=== PATIENT | male | born 1935 | race Caucasian/White ===

== ENCOUNTER 2019-01-15 18:37 | Inpatient (IN) | payer MEDICARE ==
[~2019-01-15] VITALS: Ht 167.6 cm; Wt 62.6 kg
[2019-01-15 19:33] LABS: BASOPHILS % 0.4 % (0.0-1.0); EOSINOPHILS # (AUTO) 0.2 (0.0-0.4); EOSINOPHILS % 2.6 % (0.0-6.0); HEMATOCRIT 35.3 % (38.2-49.6); HEMOGLOBIN 11.4 g/dL (14.0-18.0); LYMPHOCYTES # (AUTO) 1.9 (1.0-3.2); LYMPHOCYTES % 25.4 % (18.0-39.1); MEAN CORPUSCULAR HEMOGLOBIN 32.9 pg (28-32); MEAN CORPUSCULAR HGB CONC 32.3 g/dL (31-35); MONOCYTES # (AUTO) 1.2 (0.2-0.8); MONOCYTES % 16.6 % (4.4-11.3); NEUTROPHILS % 54.7 % (38.7-80.0); PLATELET COUNT 166 x10e3/uL (140-360); RED BLOOD COUNT 3.46 x10e6/uL (4.3-5.7); RED CELL DISTRIBUTION WIDTH 14.2 % (11.7-14.4)
[2019-01-15 19:39] LABS: INR 1.08; PROTHROMBIN TIME 14.5 seconds (11.9-14.5)
[2019-01-15 19:40] LABS: PARTIAL THROMBOPLASTIN TIME 32.6 seconds (23.8-35.5)
[2019-01-15 19:49] LABS: ALANINE AMINOTRANSFERASE 11 IU/L (0-55); ALBUMIN 3.2 g/dL (3.5-5.0); ALBUMIN/GLOBULIN RATIO 1.3 (0.8-2.0); ALKALINE PHOSPHATASE 87 IU/L (40-150); ANION GAP 9.9 mmol/L (8-16); BLOOD UREA NITROGEN 20 mg/dL (7-26); BUN/CREATININE RATIO 27 (6-25); CALCIUM 8.8 mg/dL (8.4-10.2); CARBON DIOXIDE 28 mmol/L (22-29); CHLORIDE 107 mmol/L (98-107); CREATINE KINASE 53 IU/L (30-200); CREATININE, SERUM 0.73 mg/dL (0.72-1.25); EST GLOMERULAR FILTRATION RATE > 60 ML/MIN (60-); GLUCOSE 94 mg/dL (74-118); POTASSIUM 3.9 mmol/L (3.5-5.1); SODIUM 141 mmol/L (136-145)
--- NOTE | 2019-01-15 20:04 | Diagnostic Imaging Report ---
EXAMINATION: CHEST SINGLE (PORTABLE) COMPARISON: None INDICATION: UTI ^ERMD ORDER ^[id number] ^0 ^Y DISCUSSION: Frontal view of the chest obtained at 1943 hours. HEART AND MEDIASTINUM: The heart is normal in size. The aorta is mildly tortuous. LINES: None. LUNGS: The lungs are well inflated and clear. No pneumonia or pulmonary edema. PLEURA: No pleural effusion or pneumothorax. BONES AND SOFT TISSUES: No focal osseous lesion. The soft tissues are normal. IMPRESSION: No acute cardiopulmonary disease. Signed by: Dr. Henrietta Vo MD on 01/15/2019 8:01 PM
--- NOTE | 2019-01-15 20:11 | Diagnostic Imaging Report ---
Exam: Head CT without contrast History: Confusion, altered mental status Comparison studies: Prior brain MRI of 06/21/2011 is unavailable on the PACS for comparison. Technique: Axial images were obtained from the skull base to the vertex. Coronal and sagittal images reconstructed from the axial data. Dose modulation, iterative reconstruction, and/or weight based adjustment of the mA/kV was utilized to reduce the radiation dose to as low as reasonably achievable. Radiation dose: Total DLP: 921 mGy*cm. Estimated effective dose: DLP x 0.015 Intravenous contrast: None Findings: Scalp: No abnormalities. Bones: No fractures, blastic or lytic lesions. Brain sulci: Moderately prominent. Ventricles: Moderate compensatory dilatation with greater dilatation along the right temporal horn. No hydrocephalus Extra-axial spaces: No masses, no fluid collection. Parenchyma: No mass, hemorrhage or acute or chronic cortical insults. Mildly confluent age-related changes in the periventricular white matter with a few scattered additional ill-defined hypodensities in the supratentorial white matter which are nonspecific but are most compatible with chronic microvascular ischemic changes. Age-indeterminate lacunar infarct in the left subinsular region extending along the lateral margin of the left putamen. There is moderate generalized volume loss disproportionate volume loss along the right anteromedial temporal lobe and hippocampus. Sellar/suprasellar region: No abnormalities. Craniocervical junction: Patent foramen magnum. No Chiari one malformation. Incidental findings: Atherosclerotic calcifications in the carotid siphons and in the right vertebral artery. IMPRESSION: 1. Age-indeterminate left subinsular/putaminal lacunar infarct. 2. No mass, acute hemorrhage or cortical infarct. 3. Mild chronic microvascular ischemic changes. 4. Moderate generalized parenchymal volume loss disproportionate volume loss along the right anteromedial temporal lobe. Signed by: Dr. Pietro Lennon M.D. on 01/15/2019 8:07 PM
[2019-01-15 20:49] LABS: BILIRUBIN,URINE NEGATIVE (NEGATIVE); CLARITY,URINE SL CLOUDY (CLEAR); COLOR,URINE YELLOW (YELLOW); KETONES,URINE NEGATIVE (NEGATIVE); LEUKOCYTE ESTERASE ,URINE NEGATIVE (NEGATIVE); NITRITE,URINE NEGATIVE (NEGATIVE); PROTEIN,URINE DIPSTICK NEGATIVE (NEGATIVE); URINE UROBILINOGEN 0.2 mg/dL (0.2 - 1)
[2019-01-15 21:01] LABS: AMORPHOUS SEDIMENT,URINE FEW (FEW); BACTERIA,URINE RARE /HPF
[2019-01-16] VITALS (7 sets, daily range): BP systolic 114–162; BP diastolic 64–70
[2019-01-16] MEDS ORDERED: ONDANSETRON HCL INJ 2MG/ML 2ML 2 MG/ML VIAL IV PRN
[2019-01-16] MEDS ORDERED: HALOPERIDOL LACTATE 5 MG/ML VIAL IV PRN
--- OUTSIDE RECORDS SUMMARY | 2019-01-16 00:07 | XMS REPORT ---
Author [facility] Address Unknown Phone Unavailable Care Team Providers Care Node Js Developer Name Role Phone ELVIRA JIMENEZ Unavailable Unavailable Problems This patient has no known problems. Allergies, Adverse Reactions, Alerts This patient has no known allergies or adverse reactions. Medications This patient has no known medications. Results Test Description Test Time Test Comments Text Results Atomic Results Result Comments CHEST SINGLE (PORTABLE) 2019-01-15 20:00:00 [place] [address] Patient Name: MARIAH NELSON MR #: [id number] : 1935 Age/Sex: 83/M Req #: [id number] Adm Physician: Ordered by: NORBERT LESTER NP Report #: [id number] Location: ER Room/Bed: Procedure: [id number] DX/CHEST SINGLE (PORTABLE) Exam Date: 01/15/19 Exam Time: 1929 REPORT STATUS: Signed EXAMINATION: CHEST SINGLE (PORTABLE) COMPARIS ON: None INDICATION: UTI ERMD ORDER [id number] 1929 Y DISCUSSION: Frontal view of the chest obtained at 1943 hours. HEART AND MEDIASTINUM: The heart is normal in size. The aorta is mildly tortuous. LINES: None. LUNGS: The lungs are well inflated and clear. No pneumonia or pulmonary edema. PLEURA: No pleural effusion or pneumothorax. BONES AND SOFT TISSUES: No focal osseous lesion. The soft tissues are normal. IMPRESSION: No acute cardiopulmonary disease. Signed by: Dr. Ashvin Vo MD on 01/15/2019 8:01 PM Dictated By: ASHVIN VO MD 00 Transcribed By: CHRISTOPHER on 01/15/192000 COPY TO: NORBERT LESTER NP CT BRAIN WO 2019-01-15 19:55:00 [place] [address] Patient Name: MARIAH NELSON MR #: [id number] : 1935 Age/Sex: 83/M Req #: [id number] Adm Physician: Ordered by: NORBERT LESTER NP Report #: [id number] Location: ER Room/Bed: Procedure: [id number] CT/CT BRAIN WO Exam Date: 01/15/19 Exam Time: 1929 REPORT STATUS: Signed Exam: Head CT without contrast History: Confusion, altered mental status Comparison studies: Prior brain MRI of 06/21/2011 is unavailable on the PACS for comparison. Technique: Axial images were obtained from the skull base to the vertex. Coronal and sagittal images reconstructed from the axial data. Dose modulation, iterative reconstruction, and/or weight based adjustment of the mA/kV was utilized to reduce the radiation dose to as low as reasonably achievable. Radiation dose: Total DLP: 921 mGy*cm. Estimated effective dose: DLP x 0.015 Intravenous contrast: None Findings: Scalp: No abnormalities. Bones: No fractures, blastic or lytic lesions. Brain sulci: Moderately prominent. Ventricles: Moderate compensatory dilatation with greater dilatation along the right temporal horn. No hydrocephalus Extra-axial spaces: No masses, no fluid collection. Parenchyma: No mass, hemorrhage or acute or chronic cortical insults. Mildly confluent age-related changes in the periventricular white matter with a few scattered additional ill-defined hypodensities in the supratentorial white matter which are nonspecific but are most compatible with chronic microvascular ischemic changes. Age-indeterminate lacunar infarct in the left subinsular region extending along the lateral margin of the left putamen. There is moderate generalized volume loss disproportionate volume loss along the right anteromedial temporal lobe and hippocampus. Sellar/suprasellar region: No abnormalities. Craniocervical junction: Patent foramen magnum. No Chiari one malformation. Incidental findings: Atherosclerotic calcifications in the carotid siphons and in the right vertebral artery. IMPRESSION: 1. Age-indeterminate left subinsular/putaminal lacunar infarct. 2. No mass, acute hemorrhage or cortical infarct. 3. Mild chronic microvascular ischemic changes. 4. Moderate generalized parenchymal volume loss disproportionate volume loss along the right anteromedial temporal lobe. Signed by: Dr. Khadra Lennon M.D. on 01/15/2019 8:07 PM Dictated By: KHADRA LENNON MD 06 Transcribed By: CHRISTOPHER on 01/15/192006 COPY TO: NORBERT LESTER NP
[2019-01-16] MEDS: SODIUM CHLORIDE 0.9% 1000ML 1,000 ML IV SCH ×2 (05:46→13:18)
[2019-01-16] MEDS ORDERED: ACETAMINOPHEN 325 MG TAB PO PRN (11:15)
[2019-01-16] MEDS: ASPIRIN 81 MG ENTERIC COATED PO SCH (11:31)
--- NOTE | 2019-01-16 11:43 | Diagnostic Imaging Report ---
Exam: Right foot and ankle 3 views each History: Pain Comparison: None. Findings: No acute fracture. Remote appearing transverse fracture of the medial malleolus. Generalized soft tissue swelling. Vascular calcifications. Plantar calcaneal enthesophytes. Impression: No acute osseous abnormality Signed by: Dr. Danial Bain M.D. on 01/16/2019 11:39 AM
[2019-01-16] MEDS: ENOXAPARIN SOD INJ 40 MG/0.4 ML SYR SC SCH (16:59)
[2019-01-16] MEDS: FAMOTIDINE 20 MG TAB PO SCH (16:59)
[2019-01-16 18:04] LABS: THYROID STIMULATING HORMONE 2.446 uIU/mL (0.350-4.940)
--- NOTE | 2019-01-16 18:46 | History and Physical ---
CHIEF COMPLAINT: Change in mental status. HISTORY OF PRESENT ILLNESS: This is an 83-year-old male with past medical history of dementia, who was in his usual state of health until patient's daughter brought to my office. The patient was wandering in last one or two days. The patient also has change in mental status, confused, stopped taking all medicine except p.r.n. Lasix. No chest pain. No shortness of breath. No cough. Has low-grade fever. No abdominal pain, no nausea, no vomiting. No diarrhea or constipation. Mild leg swelling. Has right ankle and right calf pain. ALLERGIES: ALLERGY TO IODINE AND SHELLFISH DERIVATIVES. PAST MEDICAL HISTORY: Dementia. PAST SURGICAL HISTORY: None. SOCIAL HISTORY: The patient is a and lives with daughter. HABITS: Denies smoking. Denies alcohol use. Denies illicit drug use. MEDICATIONS: Occasionally Lasix p.r.n. for leg swelling. The patient has stopped taking Aricept and Namenda. REVIEW OF SYSTEMS: GENERAL: Denies fatigue or weakness. HEENT: No diplopia. No blurry vision. CARDIOPULMONARY: No chest pain. No shortness of breath. No cough. ALIMENTARY SYSTEM: No nausea. No vomiting. GENITOURINARY SYSTEM: No dysuria, hematuria. MUSCULOSKELETAL: Has some joint pains. CENTRAL NERVOUS SYSTEM: The patient has severe dementia. No focal weakness. PHYSICAL EXAMINATION: GENERAL: This is an 83-year-old male, who is alert but oriented x0. VITAL SIGNS: Temperature 95.6, pulse 50, respiratory rate 18, blood pressure 134/70. HEENT: Head is atraumatic and normocephalic. Pupils are bilaterally equal and reactive to light. Extraocular muscles are intact. NECK: Supple. No JVD. No carotid bruits. LUNGS: Clear to auscultation and percussion bilaterally. No added sounds. HEART: S1 and S2. Regular rate and rhythm. No S3, S4, or murmur. ABDOMEN: Soft, nontender. No guarding. No rigidity. EXTREMITIES: +1 pitting edema bilaterally. There is range of motion right ankle tenderness and there is right calf tenderness. Chest x-ray is normal. No acute changes. CT of the head shows no mass, volume loss. Mild chronic microvascular changes, age indeterminate lacunar infarct, moderate parenchymal loss. LABORATORY DATA: White count 7.35, hematocrit 35, platelet is 166. Sodium 134, potassium 3.9, BUN and creatinine normal. Bilirubin 1.9, albumin 3.2. Urine normal. ASSESSMENT: 1. Change in mental status. Rule out new stroke. Rule out worsening of dementia. 2. Mild anemia. 3. Debility. 4. Right calf pain, rule out deep vein thrombosis. PLAN: Admit the patient to IMCU. Neuro check q.4 hours. Neurology consult, Dr. Garcia. Venous Doppler of right and left leg to rule out DVT. IV fluids normal saline 75 mL/h. Aspirin 81 mg p.o. daily. Further treatment and plan as per Neurology. MD ANUJA Contreras/MODL /[id number]
[2019-01-17] VITALS (8 sets, daily range): BP systolic 120–184; BP diastolic 64–99
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
[2019-01-17] MEDS: SODIUM CHLORIDE 0.9% 1000ML 1,000 ML IV SCH (02:38)
[2019-01-17 06:00] LABS: ALANINE AMINOTRANSFERASE 13 IU/L (0-55); ALBUMIN 3.4 g/dL (3.5-5.0); ALBUMIN/GLOBULIN RATIO 1.4 (0.8-2.0); ALKALINE PHOSPHATASE 93 IU/L (40-150); ANION GAP 12.1 mmol/L (8-16); BLOOD UREA NITROGEN 16 mg/dL (7-26); BUN/CREATININE RATIO 23 (6-25); CALCIUM 8.9 mg/dL (8.4-10.2); CARBON DIOXIDE 26 mmol/L (22-29); CHLORIDE 104 mmol/L (98-107); EST GLOMERULAR FILTRATION RATE > 60 ML/MIN (60-); GLUCOSE 86 mg/dL (74-118); POTASSIUM 4.1 mmol/L (3.5-5.1); SODIUM 138 mmol/L (136-145)
[2019-01-17] MEDS: FAMOTIDINE 20 MG TAB PO SCH ×3 (07:30→17:30)
[2019-01-17] MEDS: ASPIRIN 81 MG ENTERIC COATED PO SCH (09:25)
[2019-01-17] MEDS ORDERED: ONDANSETRON HCL 4 MG ORAL DISINTEGRATING TAB PO PRN (09:45)
[2019-01-17] MEDS: ENOXAPARIN SOD INJ 40 MG/0.4 ML SYR SC SCH (17:30)
[2019-01-17] MEDS: SIMVASTATIN 20 MG TAB PO SCH (21:16)
[2019-01-18] VITALS (7 sets, daily range): BP systolic 129–172; BP diastolic 62–112
[2019-01-18] MEDS ORDERED: ONDANSETRON HCL 4 MG ORAL DISINTEGRATING TAB PO PRN (06:15)
[2019-01-18] MEDS: ASPIRIN 81 MG ENTERIC COATED PO SCH (07:30)
[2019-01-18] MEDS: FAMOTIDINE 20 MG TAB PO SCH ×2 (07:30→16:40)
[2019-01-18] MEDS: LOSARTAN POTASSIUM 100 MG TAB PO SCH (07:31)
[2019-01-18] MEDS ORDERED: QUETIAPINE FUMARATE 25 MG TAB PO PRN (16:15)
[2019-01-18] MEDS ORDERED: LORAZEPAM 0.5 MG TAB PO PRN (16:30)
[2019-01-18] MEDS: ENOXAPARIN SOD INJ 40 MG/0.4 ML SYR SC SCH (16:40)
[2019-01-18] MEDS: LORAZEPAM INJ 2 MG/ML VIAL IM PRN (17:32)
[2019-01-18] MEDS: SIMVASTATIN 20 MG TAB PO SCH (21:00)
[2019-01-18] MEDS ORDERED: TRAZODONE HCL 50 MG TAB PO SCH ×3 (21:00)
[2019-01-18] MEDS ORDERED: TRAZODONE HCL 50 MG TAB PO PRN (21:00)
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
[2019-01-19] VITALS (8 sets, daily range): BP systolic 104–159; BP diastolic 61–98
[2019-01-19 05:21] LABS: BASOPHILS % 0.6 % (0.0-1.0); EOSINOPHILS # (AUTO) 0.2 (0.0-0.4); EOSINOPHILS % 3.2 % (0.0-6.0); HEMATOCRIT 39.5 % (38.2-49.6); LYMPHOCYTES # (AUTO) 1.6 (1.0-3.2); LYMPHOCYTES % 24.9 % (18.0-39.1); MEAN CORPUSCULAR HEMOGLOBIN 33.2 pg (28-32); MEAN CORPUSCULAR HGB CONC 32.9 g/dL (31-35); MONOCYTES # (AUTO) 0.9 (0.2-0.8); MONOCYTES % 14.3 % (4.4-11.3); NEUTROPHILS # (AUTO) 3.7 (2.1-6.9); NEUTROPHILS % 56.5 % (38.7-80.0); PLATELET COUNT 173 x10e3/uL (140-360); RED BLOOD COUNT 3.91 x10e6/uL (4.3-5.7); RED CELL DISTRIBUTION WIDTH 14.1 % (11.7-14.4)
[2019-01-19 05:40] LABS: ANION GAP 14.8 mmol/L (8-16); BLOOD UREA NITROGEN 12 mg/dL (7-26); BUN/CREATININE RATIO 17 (6-25); CALCIUM 8.8 mg/dL (8.4-10.2); CARBON DIOXIDE 25 mmol/L (22-29); CHLORIDE 106 mmol/L (98-107); CREATININE, SERUM 0.71 mg/dL (0.72-1.25); EST GLOMERULAR FILTRATION RATE > 60 ML/MIN (60-); GLUCOSE 91 mg/dL (74-118); POTASSIUM 3.8 mmol/L (3.5-5.1); SODIUM 142 mmol/L (136-145)
[2019-01-19] MEDS: FAMOTIDINE 20 MG TAB PO SCH ×2 (07:30→17:14)
[2019-01-19] MEDS: ASPIRIN 81 MG ENTERIC COATED PO SCH (09:00)
[2019-01-19] MEDS: LOSARTAN POTASSIUM 100 MG TAB PO SCH ×2 (09:00→17:15)
[2019-01-19] MEDS: HALOPERIDOL LACTATE 5 MG/ML VIAL IM PRN ×2 (11:29→17:43)
--- NOTE | 2019-01-19 15:58 | Progress Note ---
DATE: 01/19/2019 Psychiatric Progress Note SUBJECTIVE: Upon evaluation today, the patient is found to be in the room, he is with a sitter. He is calm and cooperative. He is oriented to self, situation, and place. He, however, has been getting p.r.n. IM medications. He got Seroquel last night. He also got Ativan p.r.n. last night. He did not get trazodone due to he was sleeping. This morning in the afternoon, he got Haldol p.r.n. IM. He has been eating well and no serious side effects seen or reported. The patient denies any depression or hallucination. The sitter states that he slept yesterday. ASSESSMENT: 1. Unspecified psychosis. 2. Unspecified dementia with behavior disturbances. PLAN: 1. Continue with vancomycin p.r.n. p.o. 2. DC trazodone p.o. at bedtime. 3. DC patch. 4. Continue Haldol p.r.n. IM and Ativan p.r.n. IM. 5. Add Seroquel 25 mg p.o. at bedtime and 12.5 mg p.o. b.i.d. 6. Monitor for agitation. Dictated by Karlie Almonte PA-C Robert Abebe MD QTV/MODL /[id number]
[2019-01-19] MEDS: ENOXAPARIN SOD INJ 40 MG/0.4 ML SYR SC SCH (17:15)
[2019-01-19] MEDS: QUETIAPINE FUMARATE 25 MG TAB PO SCH ×2 (17:15→20:25)
[2019-01-19] MEDS: SIMVASTATIN 20 MG TAB PO SCH (20:25)
[2019-01-20] VITALS (7 sets, daily range): BP systolic 139–167; BP diastolic 65–97
[2019-01-20] MEDS: LORAZEPAM INJ 2 MG/ML VIAL IM PRN (00:16)
[2019-01-20] MEDS: QUETIAPINE FUMARATE 25 MG TAB PO SCH ×3 (09:00→21:19)
[2019-01-20] MEDS: FAMOTIDINE 20 MG TAB PO SCH ×2 (09:16→17:27)
[2019-01-20] MEDS: ASPIRIN 81 MG ENTERIC COATED PO SCH (09:16)
[2019-01-20] MEDS: LOSARTAN POTASSIUM 100 MG TAB PO SCH (09:17)
[2019-01-20] MEDS: ENOXAPARIN SOD INJ 40 MG/0.4 ML SYR SC SCH (17:27)
[2019-01-20] MEDS: SIMVASTATIN 20 MG TAB PO SCH (21:19)
[2019-01-21] VITALS (9 sets, daily range): BP systolic 117–156; BP diastolic 75–87
[2019-01-21] MEDS: HALOPERIDOL LACTATE 5 MG/ML VIAL IM PRN ×3 (02:28→22:38)
[2019-01-21 06:26] LABS: ANION GAP 10.6 mmol/L (8-16); BLOOD UREA NITROGEN 15 mg/dL (7-26); BUN/CREATININE RATIO 22 (6-25); CALCIUM 8.9 mg/dL (8.4-10.2); CARBON DIOXIDE 26 mmol/L (22-29); CHLORIDE 108 mmol/L (98-107); CREATININE, SERUM 0.67 mg/dL (0.72-1.25); EST GLOMERULAR FILTRATION RATE > 60 ML/MIN (60-); GLUCOSE 86 mg/dL (74-118); POTASSIUM 3.6 mmol/L (3.5-5.1); SODIUM 141 mmol/L (136-145)
[2019-01-21] MEDS: FAMOTIDINE 20 MG TAB PO SCH ×2 (11:50→17:51)
[2019-01-21] MEDS: QUETIAPINE FUMARATE 25 MG TAB PO SCH ×3 (11:50→20:51)
[2019-01-21] MEDS: ASPIRIN 81 MG ENTERIC COATED PO SCH (11:50)
[2019-01-21] MEDS: LOSARTAN POTASSIUM 100 MG TAB PO SCH (11:50)
[2019-01-21] MEDS: ENOXAPARIN SOD INJ 40 MG/0.4 ML SYR SC SCH (17:51)
[2019-01-21] MEDS: SIMVASTATIN 20 MG TAB PO SCH (20:52)
[2019-01-21] MEDS: ACETAMINOPHEN 325 MG TAB PO PRN (23:38)
[2019-01-22] VITALS (7 sets, daily range): BP systolic 103–140; BP diastolic 64–84
[2019-01-22] MEDS: QUETIAPINE FUMARATE 25 MG TAB PO SCH ×3 (09:32→20:44)
[2019-01-22] MEDS: ASPIRIN 81 MG ENTERIC COATED PO SCH (09:32)
[2019-01-22] MEDS: FAMOTIDINE 20 MG TAB PO SCH ×2 (09:32→17:27)
[2019-01-22] MEDS: LOSARTAN POTASSIUM 100 MG TAB PO SCH (09:32)
[2019-01-22] MEDS: ENOXAPARIN SOD INJ 40 MG/0.4 ML SYR SC SCH (17:27)
[2019-01-22] MEDS: ACETAMINOPHEN 325 MG TAB PO PRN (20:44)
[2019-01-22] MEDS: SIMVASTATIN 20 MG TAB PO SCH (20:44)
[2019-01-23] VITALS (9 sets, daily range): BP systolic 107–150; BP diastolic 64–88
[2019-01-23 05:35] LABS: BASOPHILS % 0.4 % (0.0-1.0); EOSINOPHILS # (AUTO) 0.4 (0.0-0.4); EOSINOPHILS % 4.2 % (0.0-6.0); HEMATOCRIT 38.7 % (38.2-49.6); HEMOGLOBIN 12.7 g/dL (14.0-18.0); LYMPHOCYTES # (AUTO) 2.8 (1.0-3.2); LYMPHOCYTES % 33.2 % (18.0-39.1); MEAN CORPUSCULAR HGB CONC 32.8 g/dL (31-35); MEAN CORPUSCULAR VOLUME 100.5 fL (81-99); MONOCYTES # (AUTO) 1.2 (0.2-0.8); MONOCYTES % 14.4 % (4.4-11.3); NEUTROPHILS # (AUTO) 3.9 (2.1-6.9); NEUTROPHILS % 47.6 % (38.7-80.0); PLATELET COUNT 186 x10e3/uL (140-360); RED BLOOD COUNT 3.85 x10e6/uL (4.3-5.7); RED CELL DISTRIBUTION WIDTH 14.1 % (11.7-14.4)
[2019-01-23 05:59] LABS: ALANINE AMINOTRANSFERASE 29 IU/L (0-55); ALBUMIN 3.2 g/dL (3.5-5.0); ALBUMIN/GLOBULIN RATIO 1.3 (0.8-2.0); ALKALINE PHOSPHATASE 85 IU/L (40-150); ANION GAP 8.9 mmol/L (8-16); BUN/CREATININE RATIO 31 (6-25); CARBON DIOXIDE 29 mmol/L (22-29); CHLORIDE 104 mmol/L (98-107); EST GLOMERULAR FILTRATION RATE > 60 ML/MIN (60-); GLUCOSE 94 mg/dL (74-118); POTASSIUM 3.9 mmol/L (3.5-5.1); SODIUM 138 mmol/L (136-145)
[2019-01-23 06:02] LABS: BLOOD UREA NITROGEN 25 mg/dL (7-26)
[2019-01-23] MEDS: HALOPERIDOL LACTATE 5 MG/ML VIAL IM PRN (08:10)
[2019-01-23] MEDS: FAMOTIDINE 20 MG TAB PO SCH ×2 (09:45→16:34)
[2019-01-23] MEDS: ASPIRIN 81 MG ENTERIC COATED PO SCH (09:52)
[2019-01-23] MEDS: LOSARTAN POTASSIUM 100 MG TAB PO SCH (09:53)
[2019-01-23] MEDS: QUETIAPINE FUMARATE 25 MG TAB PO SCH ×3 (09:53→19:56)
--- NOTE | 2019-01-23 15:18 | Progress Note ---
DATE: Psychiatric Progress Note SUBJECTIVE: The patient is evaluated and events noted. Upon evaluation today, the patient is found to be sitting comfortably on his chair. He is alert, awake, and oriented to situation. He is calm and cooperative. He denies feeling depressed. He denies any hallucinations and/or any suicidal ideation. He is taking his medications and denies any side effects from his medications. Collateral information is obtained from his daughter, who claims the patient is doing better than before. She agrees with the patient's transfer to inpatient psychiatry at this time. DIAGNOSIS: AXIS I: Unspecified psychosis/unspecified dementia with behavioral disturbances. PLAN OF CARE: 1. Continue p.r.n. Haldol. 2. Continue p.r.n. Ativan. 3. Continue low dose of Seroquel. 4. Continue p.r.n. Seroquel. 5. Monitor for agitation. MD CANDY EstebanQ/MODL /[id number]
[2019-01-23] MEDS: SIMVASTATIN 20 MG TAB PO SCH (19:56)
[2019-01-24 00:02] VITALS: BP 171/80
[2019-01-24 07:51] VITALS: BP 152/76
[2019-01-24 08:55] VITALS: BP 152/76
[2019-01-24] MEDS: ASPIRIN 81 MG ENTERIC COATED PO SCH (08:55)
[2019-01-24] MEDS: LOSARTAN POTASSIUM 100 MG TAB PO SCH (08:55)
[2019-01-24] MEDS: FAMOTIDINE 20 MG TAB PO SCH (08:55)
[2019-01-24] MEDS: QUETIAPINE FUMARATE 25 MG TAB PO SCH (09:00)
== END 2019-01-24 10:31 | DRG 65 ==
LOC: ER 18:37 → ERHOLD 01-16 00:04 → IMCU 01-16 04:40 → OBSVTOIN 01-18 08:34 → MED/SURG2 01-19 17:08 → MED/SURG 01-23 17:10 → MED/SURG2 01-23 17:11
PROVIDERS: ADMIT Internal Medicine; ATTEND Internal Medicine
DX: I63.81 Other cerebral infarction due to occlusion or stenosis of small artery (principal); F02.81 Dementia in other diseases classified elsewhere, unspecified severity, with behavioral disturbance; G93.49 Other encephalopathy; G30.9 Alzheimer's disease, unspecified; Z91.83 Wandering in diseases classified elsewhere; I10 Essential (primary) hypertension; E03.9 Hypothyroidism, unspecified; Z87.442 Personal history of urinary calculi; Z87.440 Personal history of urinary (tract) infections; Z87.891 Personal history of nicotine dependence; Z82.49 Family history of ischemic heart disease and other diseases of the circulatory system; D64.9 Anemia, unspecified; R53.81 Other malaise; Z91.013 Allergy to seafood
CPT/HCPCS: 36415; 70450; 71045; 80048; 80053; 80061; 81001; 82140; 82550; 82553; 82607; 82746; 82948; 83036; 83880; 83921; 84207; 84425; 84443; 84484; 85025; 85610; 85730; 86592; 87040; 92523; 93005; 93306; 93880; 93970; 97139; 99284; G0378; J1630; J1650; J2060; J7030